=== PATIENT | male | born 1970 | race Caucasian/White ===

== ENCOUNTER 2018-03-23 16:41 | Observation (INO) | payer BC ==
[2018-03-23] MEDS ORDERED: ASPIRIN 325 MG TABLET PO ONE (16:58)
--- NOTE | 2018-03-23 17:04 | Emergency Department Record ---
History of Present Illness - General Chief Complaint: Chest Pain Stated Complaint: HEART BURN, LIGHT HEADED. LEFT ARM PAIN Time Seen by Provider: 03/23/18 16:57 Source: Patient Mode of Arrival: Ambulatory Limitations: No limitations - History of Present Illness Initial Comments: 47 yo male presents with chest discomfort. The onset was early this afternoon near 1pm. It started with a burping belching feeling. Over the course of the afternoon the burning sensation in the chest increased with some radiation to the neck and left shoulder/upper arm. He states he has felt a little short of breath and a little lightheaded. No history of CAD. He does not smoke. No direct family history of CAD. He is treated with Lipitor. He had a stress test about 5 years ago. PCP is Dr Rodriges. Complaint: Chest pain Onset/Timin -: Hour(s) Onset: Other (Onset at rest) Pain Location: Substernal Severity: Moderate Quality: Other (Burning) Consistency: Constant Improves With: Nothing Worsens With: Nothing Anginal Symptoms: Diaphoresis, Dyspnea Other Symptoms: Burping, Other Treatments Prior to Arrival: None - Related Data Home Medications Medication Instructions Recorded Confirmed Last Taken Gabapentin [Neurontin] 300 mg PO DAILY 03/23/18 03/23/18 03/23/18 Gabapentin [Neurontin] 600 mg PO QHS 03/23/18 03/23/18 03/22/18 Magnesium Glycinate [Mag Glycinate] 400 mg PO QHS 03/23/18 03/23/18 03/22/18 Allergies Allergy/AdvReac Type Severity Reaction Status Date / Time methotrexate Allergy HIVES Verified 03/23/18 17:21 Sulfa (Sulfonamide Allergy PT UNSURE Verified 03/23/18 17:21 Antibiotics) OF REACTION Travel Screening - Travel/Exposure Within Last 30 Days Have you traveled within the last 30 days?: No - Travel/Exposure Within Last Year Have you traveled outside the [place] in the last year?: No - Additonal Travel Details Have you been exposed to anyone with a communicable illness?: No - Travel Symptoms Symptom Screening: None Review of Systems Constitutional: Denies: Chills, Fever, Malaise, Weakness Eyes: Denies: Eye discharge, Eye pain, Photophobia, Vision change ENT: Denies: Congestion, Throat pain Respiratory: Reports: Dyspnea. Denies: Cough, Hemoptysis, Stridor, Wheezes Cardiovascular: Reports: Chest pain. Denies: Arrhythmia, Dyspnea on exertion, Edema, Palpitations, Syncope Endocrine: Reports: Fatigue. Denies: Heat or cold intolerance, Polydipsia, Polyuria Gastrointestinal: Reports: Nausea. Denies: Abdominal pain, Diarrhea, Vomiting Genitourinary: Denies: Dysuria, Frequency, Hematuria Musculoskeletal: Denies: Arthralgia, Back pain, Joint swelling, Myalgia Skin: Denies: Bruising, Change in color, Rash Neurological: Denies: Confusion, Headache, Numbness, Tingling, Tremors, Weakness Psychiatric: Denies: Anxiety Hematological/Lymphatic: Denies: Easy bleeding, Easy bruising Past Medical History - SOCIAL HISTORY Smoking Status: Never smoker Family Medical History Any Significant Family History?: No Physical Exam - General General Appearance: Alert, Oriented x3, Cooperative, No acute distress Limitations: No limitations - Head Head exam: Atraumatic, Normal inspection - Eye Eye exam: Normal appearance. negative: Conjunctival injection, Scleral icterus - ENT ENT exam: Normal exam, Mucous membranes moist, Normal orophraynx Ear exam: Normal external inspection Nasal Exam: Normal inspection Mouth exam: Normal external inspection - Neck Neck exam: Normal inspection - Respiratory Respiratory exam: Normal lung sounds bilaterally. negative: Accessory muscle use, Decreased breath sounds, Respiratory distress, Rhonchi, Stridor, Wheezes - Cardiovascular Cardiovascular Exam: Regular rate, Normal rhythm, Normal heart sounds Peripheral Pulses: 2+: Radial (R), Radial (L) - GI/Abdominal GI/Abdominal exam: Soft. negative: Tenderness - Rectal Rectal exam: Deferred - exam: Deferred - Extremities Extremities exam: Normal inspection. negative: Pedal edema - Back Back exam: Denies: CVA tenderness (R), CVA tenderness (L) - Neurological Neurological exam: Alert, Normal gait, Oriented X3 - Psychiatric Psychiatric exam: Normal affect, Normal mood - Skin Skin exam: Dry, Intact, Normal color, Warm Course Vital Signs 03/23/18 16:48 Temperature 97.9 F Pulse Rate 108 H Respiratory 20 Rate Blood Pressure 145/91 Pulse Ox 97 - Reevaluation(s) Reevaluation #1: 03/23/18 17:55 The labs were reviewed. No acute changes on the CBC,CMP or Troponin. 03/23/18 18:07 The Chest XR was read as negative 03/23/18 18:18 The patient reports some return of burning He does get some discomfort in the left arm at times. 03/23/18 18:20 Medical Decision Making - Lab Data Result diagrams: 03/23/18 17:14 03/23/18 17:14 Disposition Disposition: Admit Clinical Impression: Chest pain Disposition: Still a Patient at [facility] Decision to Admit: Admit from ER Decision to Admit Date: 03/23/18 Decision to Admit Time: 18:36 Condition: (2) Stable Forms: Patient Portal Access Time of Disposition: 18:36 Quality - Quality Measures Quality Measures: N/A - Blood Pressure Screening Does Patient Have Any of the Following: No Blood Pressure Classification: Hypertensive Reading Systolic Measurement: 145 Diastolic Measurement: 91 Screening for High Blood Pressure: < Pre-Hypertensive BP, F/U Documented > [ [id number]] Pre-Hypertensive Follow-up Interventions: Referral to alternative/primary care provider.
[2018-03-23 17:20] LABS: BASO % 0.3 % (0-6); EOS % 0.7 % (0-6); GRAN % 59.2 % (47-80); HEMOGLOBIN 14.5 gm/dl (14.0-18.0); LYMPH % 28.2 % (16-45); MEAN CELL VOLUME 82.9 fl (81-97); MEAN CORPUSCULAR HEMOGLOBIN 27.9 pg (27-33); MEAN CORPUSCULAR HGB CONC 33.7 g/dl (32-36); MEAN PLATELET VOLUME 9.3 fl (7.4-10.4); MONO % 11.6 % (0-9); PLATELET COUNT 346 K/uL (130-400); RED BLOOD COUNT 5.19 M/uL (4.40-5.70); RED CELL DISTRIBUTION WIDTH 13.5 % (11.5-14.5); WHITE BLOOD COUNT W/O DIFF 10.9 K/uL (4.2-12.2)
[2018-03-23 17:33] LABS: INR 1.1; PARTIAL THROMBOPLASTIN TIME 30.8 SECONDS (24.5-39.1); PROTHROMBIN TIME (PATIENT) 11.8 SECONDS (9.5-12.1)
[2018-03-23 17:35] LABS: BLOOD UREA NITROGEN 15 mg/dL (6-20); EST GLOMERULAR FILTRATION RATE > 60 mL/min
[2018-03-23 17:36] LABS: TOTAL PROTEIN 7.9 g/dL (6.6-8.7)
[2018-03-23 17:38] LABS: GLUCOSE,RANDOM 144 mg/dL (74-109)
[2018-03-23 17:40] LABS: ALB/GLOB RATIO 1.4 (1.1-1.8); ALBUMIN 4.6 g/dL (4.0-5.0); ALKALINE PHOSPHATASE 71 U/L (40-129); ALT/SGPT 29 U/L (<41); AST/SGOT 18 U/L (10.0-50.0)
[2018-03-23 17:41] LABS: CREATINE PHOSPHOKINASE 116 U/L (39-308)
[2018-03-23 17:42] LABS: CKMB 1.3 ng/mL (<6.73)
[2018-03-23] MEDS ORDERED: MAGNESIUM HYDROXIDE/AL HYDROX 30 ML, LIDOCAINE VISC 2% 15ML 15 ML PO ONE ×2 (18:17)
[2018-03-23] MEDS ORDERED: ONDANSETRON 4 MG ODT TABLET SL ONE (18:17)
[2018-03-23] MEDS ORDERED: CERTOLIZUMAB PEGOL IM SCH (21:00)
[2018-03-23] MEDS ORDERED: ACETAMINOPHEN 500 MG TABLET PO PRN (21:00)
[2018-03-23] MEDS ORDERED: AL HYDROX/MAG HYDROX 30ML UD PO PRN (21:00)
[2018-03-23] MEDS ORDERED: AMITRIPTYLINE 25 MG TABLET PO SCH (22:00)
[2018-03-23] MEDS ORDERED: GABAPENTIN 300 MG CAPSULE PO SCH (22:00)
[2018-03-23] MEDS ORDERED: ATORVASTATIN 20 MG TABLET PO SCH (22:00)
[2018-03-23] MEDS: TEMAZEPAM 15 MG CAPSULE PO SCH ×2 (22:00→22:09)
[2018-03-24 06:56] LABS: BASO % 0.3 % (0-6); EOS % 0.7 % (0-6); GRAN % 59.2 % (47-80); HEMATOCRIT 46.6 % (42.0-52.0); HEMOGLOBIN 15.1 gm/dl (14.0-18.0); LYMPH % 27.4 % (16-45); MEAN CELL VOLUME 84.1 fl (81-97); MEAN CORPUSCULAR HEMOGLOBIN 27.3 pg (27-33); MEAN CORPUSCULAR HGB CONC 32.4 g/dl (32-36); MEAN PLATELET VOLUME 9.6 fl (7.4-10.4); MONO % 12.4 % (0-9); PLATELET COUNT 343 K/uL (130-400); RED BLOOD COUNT 5.54 M/uL (4.40-5.70); RED CELL DISTRIBUTION WIDTH 13.8 % (11.5-14.5); WHITE BLOOD COUNT W/O DIFF 8.7 K/uL (4.2-12.2)
[2018-03-24 07:20] LABS: ALB/GLOB RATIO 1.3 (1.1-1.8); ALBUMIN 4.4 g/dL (4.0-5.0); ALKALINE PHOSPHATASE 68 U/L (40-129); ALT/SGPT 29 U/L (<41); AST/SGOT 17 U/L (10.0-50.0); BLOOD UREA NITROGEN 15 mg/dL (6-20); EST GLOMERULAR FILTRATION RATE > 60 mL/min; GLUCOSE,RANDOM 122 mg/dL (74-109); TOTAL PROTEIN 7.8 g/dL (6.6-8.7)
--- NOTE | 2018-03-24 07:42 | RADIOLOGY REPORT ---
EXAM: CHEST, TWO VIEWS HISTORY: DIFFICULTY IN BREATHING. TECHNIQUE: Frontal and lateral views of the chest were performed. Comparison: 09/19/14. FINDINGS: The heart size is normal. No pulmonary vascular congestion. No infiltrate or pleural effusion. The osseous structures are normal. IMPRESSION: NO ACUTE DISEASE PROCESS. JOB NUMBER: [id number] [facility]
[2018-03-24] MEDS ORDERED: GABAPENTIN 300 MG CAPSULE PO SCH ×2 (10:00→22:00)
[2018-03-24] MEDS ORDERED: ASPIRIN 325 MG TAB ENTERIC-COATED PO SCH (10:00)
--- NOTE | 2018-03-24 13:15 | History & Physical ---
History of Present Illness - Date of Service Date of Service for History & Physical: 03/24/18 - History of Present Illness Admitting Diagnosis: chest pain History of Present Illness: Mr. Perkins is a 47 yo male who presented to the ED the evening of 03/23/18 with chest discomfort. The onset was early that afternoon near 1pm. It started with a burping belching feeling. Over the course of the afternoon the burning sensation in the chest increased with some radiation to the neck and left shoulder/upper arm. He stated he has felt a little short of breath and a little lightheaded. No history of CAD. He does not smoke. No direct family history of CAD. He is treated with Lipitor. He had a stress test about 5 years ago. His history includes: migraines. In the ED, his pulse was elevated at 108, the rest of his vital signs were stable. His labs were unremarkable, no acute changes in troponin. Chest xray was negative. Based on the the pt's symptom of chest pain/tightness with radiation to his left arm, he was admitted for observation and a cardiology consult was ordered. 03/24/18 0800: Pt. is sitting up in bed. He states that he continues to have intermittent chest "tightness". He denies association between eating and his symptoms. No previous hx of GERD. He does state that he has been hungrier than usual and urinating more than usual over the last week. He also reports fluctuating weight during the last couple of months. He states that he has gained weight since starting his neurontin for headaches. He remains in NSR on tele, VSS, labs unremarkable, no elevation in troponins. TSH, A1C and cholesterol panel ordered. PCP: Dr Rodriges. Travel Screening - Travel/Exposure Within Last 30 Days Have you traveled within the last 30 days?: No - Travel/Exposure Within Last Year Have you traveled outside the [place] in the last year?: No - Additonal Travel Details Have you been exposed to anyone with a communicable illness?: No - Travel Symptoms Symptom Screening: None Review of Systems Constitutional: Denies: Chills, Fever, Malaise, Weakness Eyes: Denies: Eye discharge, Eye pain, Photophobia, Vision change ENT: Denies: Congestion, Throat pain Respiratory: Denies: Cough, Hemoptysis, Stridor, Wheezes Cardiovascular: Reports: Chest pain. Denies: Arrhythmia, Dyspnea on exertion, Edema, Palpitations, Syncope Endocrine: Denies: Heat or cold intolerance, Polydipsia, Polyuria Gastrointestinal: Reports: Nausea. Denies: Abdominal pain, Diarrhea, Vomiting Genitourinary: Denies: Dysuria, Frequency, Hematuria Musculoskeletal: Denies: Arthralgia, Back pain, Joint swelling, Myalgia Skin: Denies: Bruising, Change in color, Rash Neurological: Denies: Confusion, Headache, Numbness, Tingling, Tremors, Weakness Psychiatric: Denies: Anxiety Hematological/Lymphatic: Denies: Easy bleeding, Easy bruising Past Medical History - SOCIAL HISTORY Smoking Status: Never smoker - RESPIRATORY Hx Respiratory Disorders: Yes Hx Sleep Apnea: Yes Hx of CPAP: Yes - CARDIOVASCULAR Hx Cardio Disorders: No Comment:: murmer - NEURO Hx Neuro Disorders: Yes Hx Dizziness: Yes Hx Headaches: Yes - GI Hx GI Disorders: Yes Hx Reflux: Yes Hx Pancreatitis: Yes (mild with gallbladder) - Hx Genitourinary Disorders: Yes Hx Kidney Stones: Yes - ENDOCRINE Hx Endocrine Disorders: No - MUSCULOSKELETAL Hx Musculoskeletal Disorders: Yes Comment:: ankylosing spondylitis - PSYCH Hx Psych Problems: No - HEMATOLOGY/ONCOLOGY Hx Hematology/Oncology Disorders: No Family Medical History Any Significant Family History?: No H&P Meds/Allergies - Allergies Allergies: Allergies Allergy/AdvReac Type Severity Reaction Status Date / Time methotrexate Allergy HIVES Verified 03/23/18 17:21 Sulfa (Sulfonamide Allergy PT UNSURE Verified 03/23/18 17:21 Antibiotics) OF REACTION - Home Medications Home Medications Medication Instructions Recorded Confirmed Last Taken Gabapentin [Neurontin] 300 mg PO DAILY 03/23/18 03/23/18 03/23/18 Gabapentin [Neurontin] 600 mg PO QHS 03/23/18 03/23/18 03/22/18 Magnesium Glycinate [Mag Glycinate] 400 mg PO QHS 03/23/18 03/23/18 03/22/18 - Active Medications Active Medications: Current Medications Acetaminophen (Tylenol 500mg Tab) 1,000 mg PO Q6H PRN PRN Reason: PAIN/TEMP Al Hydroxide/Mg Hydroxide (Maalox) 30 ml PO Q4H PRN PRN Reason: Abdominal Pain Last Admin: 03/23/18 21:33 Dose: 30 ml Amitriptyline HCl (Elavil) 50 mg PO QHS [facility] Aspirin (Ecotrin (Ec)) 325 mg PO DAILY [facility] Last Admin: 03/24/18 09:20 Dose: 325 mg Atorvastatin Calcium (Lipitor) 20 mg PO QHS [facility] Last Admin: 03/23/18 22:04 Dose: 20 mg Gabapentin (Neurontin) 300 mg PO DAILY [facility] Last Admin: 03/24/18 09:20 Dose: 300 mg Gabapentin (Neurontin) 600 mg PO QHS [facility] Temazepam (Restoril) 15 mg PO QHS [facility] Last Admin: 03/23/18 22:09 Dose: 15 mg Physical Exam - Vital Signs Vital Signs: Vital Signs - Last 24 Hrs Temp Pulse Pulse Resp BP BP Pulse Ox 03/24/18 11:39 98.1 F 114/84 03/24/18 09:00 82 18 03/24/18 08:00 98.1 F 82 18 114/84 98 03/24/18 06:15 96 03/23/18 22:05 98.1 F 79 17 142/85 95 03/23/18 21:00 16 03/23/18 19:35 98.1 F 87 18 138/92 98 03/23/18 19:31 78 16 132/89 99 03/23/18 19:00 88 16 128/90 99 03/23/18 18:30 89 16 127/81 03/23/18 18:00 88 16 127/86 03/23/18 17:33 87 16 122/89 99 03/23/18 16:48 97.9 F 108 H 20 145/91 97 - General General Appearance: Alert, Oriented x3, Cooperative, No acute distress Limitations: No limitations - Head Head exam: Atraumatic, Normal inspection - Eye Eye exam: Normal appearance. negative: Conjunctival injection, Scleral icterus - ENT ENT exam: Normal exam, Mucous membranes moist, Normal orophraynx Ear exam: Normal external inspection Nasal Exam: Normal inspection Mouth exam: Normal external inspection - Neck Neck exam: Normal inspection - Respiratory Respiratory exam: Normal lung sounds bilaterally. negative: Accessory muscle use, Decreased breath sounds, Respiratory distress, Rhonchi, Stridor, Wheezes - Cardiovascular Cardiovascular Exam: Regular rate, Normal rhythm, Normal heart sounds Peripheral Pulses: 2+: Radial (R), Radial (L) - GI/Abdominal GI/Abdominal exam: Soft. negative: Tenderness - Rectal Rectal exam: Deferred - exam: Deferred - Extremities Extremities exam: Normal inspection. negative: Pedal edema - Back Back exam: Denies: CVA tenderness (R), CVA tenderness (L) - Neurological Neurological exam: Alert, Normal gait, Oriented X3 - Psychiatric Psychiatric exam: Normal affect, Normal mood - Skin Skin exam: Dry, Intact, Normal color, Warm Results - Labs Result Diagrams: 03/24/18 06:26 03/24/18 06:26 Labs Last 24 Hours: Laboratory Results - last 24 hr 03/23/18 03/23/18 03/23/18 17:14 17:14 17:14 WBC 10.9 RBC 5.19 Hgb 14.5 Hct 43.0 MCV 82.9 MCH 27.9 MCHC 33.7 RDW 13.5 Plt Count 346 MPV 9.3 Gran % 59.2 Lymphocytes % 28.2 Monocytes % 11.6 H Eosinophils % 0.7 Basophils % 0.3 PT 11.8 INR 1.1 APTT 30.8 Sodium 136 Potassium 3.7 Chloride 95 L Carbon Dioxide 29.0 Anion Gap 12.0 BUN 15 Creatinine 1.0 Estimated GFR > 60 Random Glucose 144 H Calcium 9.2 Total Bilirubin 0.30 AST 18 ALT 29 Alkaline Phosphatase 71 Creatine Kinase 116 CK-MB (CK-2) 1.3 Troponin T < 0.010 Total Protein 7.9 Albumin 4.6 Globulin 3.3 Albumin/Globulin Ratio 1.4 03/23/18 03/24/18 03/24/18 22:42 06:26 06:26 WBC 8.7 RBC 5.54 Hgb 15.1 Hct 46.6 MCV 84.1 MCH 27.3 MCHC 32.4 RDW 13.8 Plt Count 343 MPV 9.6 Gran % 59.2 Lymphocytes % 27.4 Monocytes % 12.4 H Eosinophils % 0.7 Basophils % 0.3 PT INR APTT Sodium Potassium Chloride Carbon Dioxide Anion Gap BUN Creatinine Estimated GFR Random Glucose Calcium Total Bilirubin AST ALT Alkaline Phosphatase Creatine Kinase CK-MB (CK-2) Troponin T < 0.010 < 0.010 Total Protein Albumin Globulin Albumin/Globulin Ratio 03/24/18 06:26 WBC RBC Hgb Hct MCV MCH MCHC RDW Plt Count MPV Gran % Lymphocytes % Monocytes % Eosinophils % Basophils % PT INR APTT Sodium 142 Potassium 4.5 Chloride 97 L Carbon Dioxide 32.0 H Anion Gap 13.0 BUN 15 Creatinine 1.0 Estimated GFR > 60 Random Glucose 122 H Calcium 9.3 Total Bilirubin 0.40 AST 17 ALT 29 Alkaline Phosphatase 68 Creatine Kinase CK-MB (CK-2) Troponin T Total Protein 7.8 Albumin 4.4 Globulin 3.4 Albumin/Globulin Ratio 1.3 - Imaging and Cardiology Chest x-ray Status: Report reviewed VTE H&P Assessment - Risk for VTE Risk for VTE: Yes Risk Level: Moderate Risk Assessment Date: 03/24/18 Risk Assessment Time: 15:38 VTE Orders Placed or Will Be Placed: Yes Plan - Detailed Diagnosis and Plan (1) Chest pain Current Visit: Yes Status: Acute Base Code: R07.9 - CHEST PAIN, UNSPECIFIED Comment: 03/24/18: -Chest pain/tightness with radiation to neck and left shoulder began around 1pm on 03/23/18 -EKG normal, Chest xray normal -Cardiology consult ordered for [facility] (2) At risk for deep venous thrombosis Current Visit: Yes Status: Acute Base Code: Z91.89 - OTH PERSONAL RISK FACTORS, NOT ELSEWHERE CLASSIFIED Comment: 03/24/18: -Will start lovenox 40mg SC if pt. does not d/c home after cardiology consult this evening (3) Full code status Current Visit: Yes Status: Acute Base Code: Z78.9 - OTHER SPECIFIED HEALTH STATUS Comment: 03/24/18: -Pt. is a full code status
[2018-03-24 16:20] LABS: THYROID STIMULATING HORMONE 1.74 uIU/mL (0.270-4.20)
--- NOTE | 2018-03-24 18:51 | Discharge Summary ---
Providers Discharge Summary Date: 03/24/18 Date of admission: 03/23/18 19:32 Expected Date of Discharge: 03/24/18 Attending physician: KENNETH TO Primary care physician: DOMENICO RODRIGES D.O. Consults: Consult Orders 03/23/18 21:00 Consult - Cardiology NOW Consulting Provider: VINCENT VALADEZ Physician Instructions: Reason For Exam: chest pain Does pt have current staff assistant?: Not Established Physical Exam - Vital Signs Vital Signs: Vital Signs - Last 24 Hrs Temp Pulse Pulse Resp BP BP Pulse Ox 03/24/18 16:00 98.1 F 81 18 101/78 94 L 03/24/18 12:00 98.1 F 80 18 112/80 96 03/24/18 11:39 98.1 F 114/84 03/24/18 09:00 82 18 03/24/18 08:00 98.1 F 82 18 114/84 98 03/24/18 06:15 96 03/23/18 22:05 98.1 F 79 17 142/85 95 03/23/18 21:00 16 03/23/18 19:35 98.1 F 87 18 138/92 98 03/23/18 19:31 78 16 132/89 99 03/23/18 19:00 88 16 128/90 99 - General General Appearance: Alert, Oriented x3, Cooperative, No acute distress Limitations: No limitations - Head Head exam: Atraumatic, Normal inspection - Eye Eye exam: Normal appearance. negative: Conjunctival injection, Scleral icterus - ENT ENT exam: Normal exam, Mucous membranes moist, Normal orophraynx Ear exam: Normal external inspection Nasal Exam: Normal inspection Mouth exam: Normal external inspection - Neck Neck exam: Normal inspection - Respiratory Respiratory exam: Normal lung sounds bilaterally. negative: Accessory muscle use, Decreased breath sounds, Respiratory distress, Rhonchi, Stridor, Wheezes - Cardiovascular Cardiovascular Exam: Regular rate, Normal rhythm, Normal heart sounds Peripheral Pulses: 2+: Radial (R), Radial (L) - GI/Abdominal GI/Abdominal exam: Soft. negative: Tenderness - Rectal Rectal exam: Deferred - exam: Deferred - Extremities Extremities exam: Normal inspection. negative: Pedal edema - Back Back exam: Denies: CVA tenderness (R), CVA tenderness (L) - Neurological Neurological exam: Alert, Normal gait, Oriented X3 - Psychiatric Psychiatric exam: Normal affect, Normal mood - Skin Skin exam: Dry, Intact, Normal color, Warm Hospitalization - Hospitalization Admission Diagnosis: chest pain - Problem List/Discharge Diagnosis (1) Chest pain Current Visit: Yes Status: Acute Base Code: R07.9 - CHEST PAIN, UNSPECIFIED Comment: 03/24/18: -Chest pain/tightness with radiation to neck and left shoulder began around 1pm on 03/23/18 -EKG normal, Chest xray normal -Cardiology consult completed, treadmilll stress test normal -Plan to d/c home and initiate PPI medication, GERD likely underlying cause of pain (2) At risk for deep venous thrombosis Current Visit: Yes Status: Acute Base Code: Z91.89 - OTH PERSONAL RISK FACTORS, NOT ELSEWHERE CLASSIFIED Comment: 03/24/18: -Will start lovenox 40mg SC if pt. does not d/c home after cardiology consult this evening (3) Full code status Current Visit: Yes Status: Acute Base Code: Z78.9 - OTHER SPECIFIED HEALTH STATUS Comment: 03/24/18: -Pt. is a full code status - Disposition home, self-care - Hospitalization Course Disposition: Home, Self-Care Hospital Course: Mr. Perkins is a 47 yo male who presented to the ED the evening of 03/23/18 with chest discomfort. The onset was early that afternoon near 1pm. It started with a burping belching feeling. Over the course of the afternoon the burning sensation in the chest increased with some radiation to the neck and left shoulder/upper arm. He stated he has felt a little short of breath and a little lightheaded. No history of CAD. He does not smoke. No direct family history of CAD. He is treated with Lipitor. He had a stress test about 5 years ago. His history includes: migraines. In the ED, his pulse was elevated at 108, the rest of his vital signs were stable. His labs were unremarkable, no acute changes in troponin. Chest xray was negative. Based on the the pt's symptom of chest pain/tightness with radiation to his left arm, he was admitted for observation and a cardiology consult was ordered. 03/24/18 0800: Pt. is sitting up in bed. He states that he continues to have intermittent chest "tightness". He denies association between eating and his symptoms. No previous hx of GERD. He does state that he has been hungrier than usual and urinating more than usual over the last week. He also reports fluctuating weight during the last couple of months. He states that he has gained weight since starting his neurontin for headaches. He remains in NSR on tele, VSS, labs unremarkable, no elevation in troponins. TSH, A1C and cholesterol panel ordered. 03/24/18 1630: Cardiology consult completed, treadmill stress test normal. Labs remain unremarkable. Will discharge home and initiate PPI medication, GERD likely underlying cause of pt's pain. Omeprazole 20mg qam called in by nursing, qty 14 tablets. PCP: Dr Rodriges. Procedures: Imaging and X-Rays 03/23/18 16:58 CHEST 2 VIEWS [RAD] Stat Cardiology Procedures 03/23/18 16:58 Digital Community Manager NOW EKG NOW 03/23/18 21:00 EKG QDX2@0600 03/24/18 12:52 Stress EKG/STD Treadmill NOW Abnormal Labs: Abnormal Lab Results 03/23/18 03/23/18 03/24/18 Range/Units 17:14 17:14 06:26 Monocytes % 11.6 H 12.4 H (0-9) % Chloride 95 L (98-107) mmol/L Carbon Dioxide (22-29) mmol/L Random Glucose 144 H (74-109) mg/dL 03/24/18 Range/Units 06:26 Monocytes % (0-9) % Chloride 97 L (98-107) mmol/L Carbon Dioxide 32.0 H (22-29) mmol/L Random Glucose 122 H (74-109) mg/dL Condition at Discharge: (2) Stable VTE Discharge VTE Reason For No Overlap Therapy: Not Indicated Discharge Medications - Discharge Medications Home Medications: Ambulatory Orders Cholecalciferol [Vitamin D3] 5,000 unit PO DAILY 09/19/14 [Last Taken 03/22/18] [place]-3/Dha/Epa/Fish Oil [Fish Oil Dr 500 mg Softgel] 1,000 mg PO DAILY [Last Taken 03/22/18] Atorvastatin Calcium [Lipitor] 20 mg PO QHS #90 02/10/17 [Last Taken 03/22/18] Certolizumab Pegol [Cimzia] 1 syringe IM ASDIR #1 02/10/17 [Last Taken Unknown] Temazepam 15 mg PO QHS #60 02/10/17 [Last Taken Unknown] Amitriptyline HCl 50 mg PO QHS 10/29/17 [Last Taken 03/22/18] Gabapentin [Neurontin] 300 mg PO DAILY 03/23/18 [Last Taken 03/23/18] Gabapentin [Neurontin] 600 mg PO QHS 03/23/18 [Last Taken 03/22/18] Magnesium Glycinate [Mag Glycinate] 400 mg PO QHS 03/23/18 [Last Taken 03/22/18] Discharge Plan - Discharge Instructions Activity at Discharge: Increase Activity as Tolerated Diet at Discharge: Regular Diet Instructions: Omeprazole (By mouth), Chest Pain (DC), Cardiac Stress Test (DC) Additional Instructions: 2 Activity: Up as tolerated 2 Diet: low salt, low cholesterol 2 Consults: [] 2 Follow Up: [With Primary care within 7-10 days] 2 Dressing/Wound Care: (Type) (Change) 2 Additional: [Continue home medications New medications Omeprazole 20mg daily, please pick up and delivery driver prescription from pharmacy Primary care physician will need to prescribe omeprazole to continue the medications Return to the emergency room with any new or worsening symptoms] Quality Measures - Quality Measures Quality Measures: Documentation of Current Medications in Medical Record, Screening for High Blood Pressure and F/U Documented - Current Medications Quality Measure: Measure #130: Documentation of Current Medications Documentation of Current Medications: <Current Medications Documented/Reviewed> [G8427] - Blood Pressure Screening Quality Measure: Screening for High Blood Pressure and Follow-Up Documented Does Patient Have Any of the Following: Active Dx of HTN Blood Pressure Classification: Pre-Hypertensive BP Reading Systolic Measurement: 114 Diastolic Measurement: 84 Screening for High Blood Pressure: Patient Exclusion, Hx of HTN [G9744] - Elder Abuse Suspicion Index EASI Reference Information: Howard JACKSON, Delia C, Jorge D, Estela M.Development and validation of a tool to assist physicians identification of elder abuse: The Elder Abuse Suspicion Index (EASI ). Journal of Elder Abuse and Neglect, 2008; 20 (3): 276-300.
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
[2018-03-24] MEDS ORDERED: AMITRIPTYLINE 25 MG TABLET PO SCH (22:00)
--- NOTE | 2018-03-24 22:06 | Stress Test Report ---
DATE OF TEST: 03/24/2018 Mr. Perkins is 47 years old, undergoing exercise stress testing for atypical chest pain. His resting blood pressure was 117/81. Resting heart rate was 104 beats per minute. He exercised for 8 minutes, 40 seconds per the Dion Protocol. He denied any cardiac complaints during exercise. His baseline ECG demonstrated sinus rhythm with normal axis and intervals. His peak blood pressure was 163/81, which is a normal response to exercise. His maximum heart rate was 175, which is 102% of age-predicted maximal heart rate. Continuous ECG monitoring demonstrated no evidence for ischemia or arrhythmia. He completed approximately 10 METS of activity. FINAL IMPRESSION: 1. ASYMPTOMATIC MAXIMAL DION STRESS COMPLETING 10 METS WITH NO ECG EVIDENCE FOR ISCHEMIA OR ARRHYTHMIA. 2. NORMAL BLOOD PRESSURE RESPONSE TO EXERCISE. 3. AVERAGE PHYSICAL FITNESS FOR AGE. JOB NUMBER: [id number] MTDD
[2018-03-25] MEDS ORDERED: PANTOPRAZOLE SODIUM 40 MG TABLET PO SCH (07:00)
== END 2018-03-24 19:40 | disposition home or self-care (01) ==
LOC: ER 16:41 → MEDSURG 19:32
PROVIDERS: ADMIT Internal Medicine; ATTEND Internal Medicine
DX: R07.9 Chest pain, unspecified (principal); R06.02 Shortness of breath; R12 Heartburn; G47.30 Sleep apnea, unspecified; K21.9 Gastro-esophageal reflux disease without esophagitis; K85.90 Acute pancreatitis without necrosis or infection, unspecified; M45.9 Ankylosing spondylitis of unspecified sites in spine; Z87.442 Personal history of urinary calculi; Z90.49 Acquired absence of other specified parts of digestive tract
CPT/HCPCS: 99285 ×2; 82550; 85025 ×2; 85730; 85610; 82553; 80048; 80053 ×2; 83036; 84443; 80061; 84484 ×2; 71046; 94760; 93005 ×2; 93017; 93010; G0378 ×2; J3490; 99220

== ENCOUNTER 2018-05-21 10:39 | Day surgery (SDC) | payer BC ==
[2018-05-21] MEDS ORDERED: PROPOFOL 10 MG/ML VIAL IV ONE (10:40)
[2018-05-21] MEDS ORDERED: LIDOCAINE 2% MDV (20MG/ML) 20ML VIAL IV ONE (10:40)
--- NOTE | 2018-05-24 12:50 | Operative Note ---
DATE OF SURGERY: 05/21/2018 SURGEON: Ken Sharma MD OPERATION: ESOPHAGOGASTRODUODENOSCOPY. INDICATIONS: This is a 47-year-old male with history of gastroesophageal reflux disease who presented for esophagogastroduodenoscopy. POSTOPERATIVE DIAGNOSES: 1. LA class A esophagitis. 2. Normal stomach and duodenum. ANESTHESIA: Sedation is per Anesthesia. Pulse oximetry was monitored throughout the procedure to maintain O2 saturation of 90% or greater. Supplemental oxygen was administered via nasal cannula. Cardiac and vital signs were monitored throughout the duration of the procedure, and they were stable. The procedure of esophagogastroduodenoscopy and risks and benefits of the procedure, including the risk of bleeding and perforation, among others, were explained to the patient who voiced understanding and agreed to have the procedure done. Physical examination was performed, and the patient was found stable for sedation. PROCEDURE: The patient was placed in the left lateral position. Sedation was initiated. A plastic bite block was inserted into the oral cavity. The Olympus XTO035 gastroscope was introduced into the proximal esophagus advanced to the stomach without any difficulty. The esophageal mucosa was carefully examined upon introduction of the gastroscope. The proximal and mid and distal esophageal mucosa appeared normal. At the GE junction there were linear erosions consistent with LA class A esophagitis. The gastroscope was then advanced into the stomach, and surveillance of the stomach revealed normal gastric fundus, body, and antrum with no ulcers noted. The gastroscope was then advanced to the descending duodenum without difficulty. The duodenal bulb and descending duodenum appeared normal. The gastroscope was then withdrawn into the stomach and retroflexion was performed. There were no other lesions noted. The gastroscope was then withdrawn and multiple distal esophageal biopsies were obtained. The patient remained with stable vital signs and was transferred to the recovery room. RECOMMENDATIONS: 1. The patient should continue on his proton pump inhibitors. 2. I will see him back in the office as needed. Thank you for allowing me to participate in the care of your patient. CC: DO ABDIRAHMAN Aguillon
== END 2018-05-21 12:49 | disposition home or self-care (01) ==
LOC: HOP 10:39
PROVIDERS: ATTEND Internal Medicine Gastroenterology
DX: Z87.19 Personal history of other diseases of the digestive system (principal); K20.8 Other esophagitis; M45.9 Ankylosing spondylitis of unspecified sites in spine